=== PATIENT | female | born 1975 | race Caucasian/White ===

== ENCOUNTER 2018-01-06 19:50 | Inpatient (IN) | payer OTHER, SELFPAY ==
[2018-01-06 16:31] VITALS: BMI 30.4
[2018-01-06 18:09] LABS: Hemoglobin 11.3 g/dl (12.0-15.0); Mean Corp Hgb Conc 33.2 g/gl (32-36); Mean Corpuscular Hgb 30.5 pg (27.0-32.0); Mean Corpuscular Volume 91.9 fL (81-99); Mean Platelet Vol. 10.9 fl (6.2-12.0); Platelet Count 240 K/mm3 (150-450); RBC Distribution Width SD 46.5 fl (35.1-43.9); White Blood Count 12.3 K/mm3 (4.4-11.0)
[2018-01-06 18:11] LABS: Scan Indicated on CBC? Y/N NO
[2018-01-06 18:21] LABS: Prothrombin Time (Protime)PT. 13.2 SECONDS (11.7-14.9)
[2018-01-06 18:22] LABS: Partial Thromboplast Time 26.7 Seconds (24.1-36.2)
[2018-01-06 18:27] LABS: AST(SGOT) 22 U/L (15-37); Alanine Aminotransfer ALT/SGPT 22 U/L (13-56); EST Glomerular Filtration Rate 116 mL/min (>60); Est Glom Filt Rate - Afr Amer 141 mL/min (>60); Estimated Creatinine Clearance 102.07 ml/min; Uric Acid 4.4 mg/dL (2.6-6.0)
[2018-01-06 18:30] LABS: Fibrinogen 525 mg/dl (203-444)
[2018-01-06 19:28] LABS: Protein, Urine (Random) 9.2 mg/dL (<11.9); Protein:Creat Ratio 243 mg/g CRE (0-200)
[2018-01-06] MEDS: 0.9% Normal Saline 100 ML IV.SOLN. INTRA-UTER (20:00)
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
[2018-01-06] MEDS: Lactated Ringers 1,000 ML 50 ML IV ×2 (20:30→22:30)
[2018-01-06] MEDS: Acetaminophen 325 MG Tablet PO (22:29)
[2018-01-06] MEDS: Oxytocin 30 units/NS 500 ml 30 UNITS/500 ML IV.SOLN IV (22:59)
[2018-01-07] MEDS: fentaNYL-bupivacaine (epidural) 100 ML BAG EPIDURAL (00:33)
[2018-01-07] MEDS: Amnioinfusion- 0.9% NS 1,000 ML IV.SOLN. 1000 ML INTRA-UTER (04:25)
--- NOTE | 2018-01-07 04:35 | PCM.PN.OB ---
Patient Problems: Active and Suspected Problems Gestational hypertension (Acute) (Acute) Advanced maternal age during (Acute) History of depression (Acute) Rh negative status during (Acute) Rubella non-immune status, antepartum (Acute) Depression affecting (Acute) Subjective: Comfortable with epidural. Multiple position changes due to heart rate: side to side, hands and knees, high fowlers, peanut ball with positions. Partner and family at bedside. Objective: FHT: 115, moderate variability, accels, periodic variable decels with each contraction down to 65. Category 2 FHT TOCO: every 3 minutes, moderate to palpation Oxytocin turned off at 0230 Cervix 7cm/70%/-1 Vertex with transverse position, posterior fontanel to maternal right. AROM at 0308 for moderate amount of clear fluid. IUPC inserted - Physical Exam Weight: 172 lb Body Mass Index (BMI) 30.4 Laboratory Tests Past 24 Hrs 01/06/18 01/06/18 01/06/18 17:30 17:30 17:30 WBC 12.3 H RBC 3.70 L Hgb 11.3 L Hct 34.0 L MCV 91.9 MCH 30.5 MCHC 33.2 RDW 14.0 RDW Differential 46.5 H Plt Count 240 MPV 10.9 PT 13.2 INR 1.0 APTT 26.7 Fibrinogen Creatinine 0.60 Estim Creat Clear Calc 102.07 Est GFR (MDRD) Af Amer 141 Est GFR (MDRD) Non-Af 116 Uric Acid 4.4 AST 22 ALT 22 U Random Total Protein Urine Creatinine Protein/Creatinin Ratio Blood Type Antibody Screen 01/06/18 01/06/18 01/06/18 17:30 17:30 17:30 WBC RBC Hgb Hct MCV MCH MCHC RDW RDW Differential Plt Count MPV PT INR APTT Fibrinogen 525 H Creatinine Estim Creat Clear Calc Est GFR (MDRD) Af Amer Est GFR (MDRD) Non-Af Uric Acid AST ALT U Random Total Protein Urine Creatinine Protein/Creatinin Ratio Blood Type AB NEGATIVE Antibody Screen TNP NEGATIVE 01/06/18 18:55 WBC RBC Hgb Hct MCV MCH MCHC RDW RDW Differential Plt Count MPV PT INR APTT Fibrinogen Creatinine Estim Creat Clear Calc Est GFR (MDRD) Af Amer Est GFR (MDRD) Non-Af Uric Acid AST ALT U Random Total Protein 9.2 Urine Creatinine 37.90 Protein/Creatinin Ratio 243 H Blood Type Antibody Screen Medical Necessity - Tobacco Use Smoking Status: Never smoker Assessment/Plan Active and Suspected Problems Gestational hypertension (Acute) (Acute) Advanced maternal age during (Acute) History of depression (Acute) Rh negative status during (Acute) Rubella non-immune status, antepartum (Acute) Depression affecting (Acute) A: Gestational Hypertension Periodic variable decelerations Category 2 FHT P: 1) Consulted following AROM, pitocin infusion turned off, multiple position changes. Discussed amnioinfusion for periodic variable decelerations with each contraction down to 65bpm at lowest teresa. To start amnioinfusion. Will bolus 300ml NS over 30 minutes via amnioinfusion. 2) Positioned on maternal right side with peanut ball. 3) Pitocin off at this time due to variable decelerations. With resolution will restart pitocin.
[2018-01-07] MEDS: Oxytocin 30 units/NS 500 ml 30 UNITS/500 ML IV.SOLN 334 UNITS IV (06:40)
[2018-01-07] MEDS: Oxytocin 30 units/NS 500 ml 30 UNITS/500 ML IV.SOLN 167 UNITS IV (07:10)
--- NOTE | 2018-01-07 07:26 | PCM.OB.VAG ---
- Problem List (1) Gestational hypertension Status: Acute (2) Status: Acute (3) Advanced maternal age during Status: Acute (4) Rh negative status during Status: Acute (5) Rubella non-immune status, antepartum Status: Acute (6) Depression affecting Status: Acute (7) Vaginal delivery Status: Acute Vaginal Delivery Maternal Presentation: Medically Indicated Induction - Gestational HTN Method of Induction: Pitocin, Witt Bulb Amniotic Membrane Rupture Type: Artificial Amniotic Fluid Description: Clear Final STACEY: 01/18/18 Gestational age: 38 Weeks and 3 Days Date of Procedure: 01/07/18 Pre-Operative Diagnosis: Gestational HTN with Induction of Labor Post-Operative Diagnosis: Sponatneous Vaginal Delivery Surgery/ Procedure Performed: Spontaneous Vaginal Delivery Type of Anesthesia: Epidural Description of Procedure: Progressed to complete with urge to push. of viable male over 1st degree perineal laceration under epidural analgesia. Delivery complicated by CAN x1 and compound left hand. APGARS 8,9. delivered without difficulty, placed on maternal abdomen, spontaneous cry. Mouth and nares suctioned for secretions. Delayed cord clamping. Cord doubly clamped and cut by FOB after pulsations ceased. Pitocin started for active 3rd stage management. Placenta delivered via paola, intact, 3 vessel cord. Perineum inspected for lacerations and revealed 1st degree perineal laceration repaired with 3.0 vicryl and bilateral periurethral lacerations with 3.0 vicryl under epidural analgesia. Family bonding well. Planning to breastfeed. Mom and baby stable. notified of delivery. Presentation: Vertex Placental Delivery Description: Spontaneous Placenta Disposition: [facility] Cord Vessel Description: 3 Vessels Cord Entanglement: Around neck x 1, loose A gender: Male (1 minute): 8 (5 minute): 9 Episiotomy Description: None Laceration: Perineal Extension/lac, 1st degree Medications given after delivery: IV Pitocin
--- NOTE | 2018-01-07 07:39 | DCINST_ITS ---
Discharge Diet: No Restrictions Discharge Activity: Return to Normal Activity, May not drive while taking narcotic pain medications., May Shower May resume sexual activity in: 4-6 weeks Weight Bearing Status: Weight bearing as tolerated Lifting Restrictions: Less than 25lbs Call your doctor if your incision/area has: Continuous Slow Oozing, Sudden Increased Bleeding, Increased Pain/ Swelling, Increased Redness, Foul Smelling Discharge Call your doctor if you observe: Fever of 101 or Higher, Coldness, Increased Pain, Numbness or Tingling, Change in Color, Inability to urinate, Inability to have a bowel movement, Using more than one pad per hour, Shortness of breath, Dizziness, Fainting spells, Swelling in the ankles, Chest pain, Prolonged hiccoughing, Increased palpitations (irregular heartbeat), Calf discomfort, Uncontrolled pain Additional Instructions: If you experience any of the following, contact your healthcare provider. * Bleeding that soaks a pad every hour for 2 hours * Fever 100.4 or higher * Unrelieved incision or abdominal pain * Swelling, redness, discharge or bleeding from your incision or episiotomy site * Your incision begins to separate * Problems urinating (including inability to urinate or burning while urinating) . * Visual changes * Severe headache * Flu-like symptoms * Pain or redness in one of both of your breasts * Pain, warmth, tenderness or swelling in your legs, especially the calf area * Frequent nausea and vomiting * Symptoms of depression or anxiety If you experience any of the following, call 911 or go to the nearest Emergency Room. * Chest pain * Problems breathing * Seizure activity * Partial or complete paralysis of a body part, slurred speech, weakness or drooping of the face, or a sudden inability to walk or hold your balance Allergies/Adverse Reactions: Allergies No Known Allergies Allergy (Verified 10/02/16 21:03) Medications to take at Discharge Aspirin, Baby 81 mg PO DAILY 01/06/18 Pepcid 40 mg PO BID 01/06/18 Pnv No.122/Iron/Folic Acid [ Multi Tablet] 1 tab PO DAILY 01/06/18 Sertraline HCl [Zoloft] 50 mg PO DAILY 01/06/18 Please Follow Up With: Analia Jara MD When: Call to make an appointment with your doctor in 6 weeks. If you had elevated Blood Pressure or 4th degree laceration you will need to be seen in 2 weeks. Primary Care Physician: Neal Pozo DO [Primary Care Provider] -
[2018-01-07 10:00] VITALS: BP 123/74; PULSE 79; RESP 16; TEMP 36.9; O2SAT 96
[2018-01-07] MEDS: Naproxen 250 MG Tablet PO ×2 (10:24→19:59)
[2018-01-07 12:00] VITALS: BP 122/73; PULSE 84; RESP 18; TEMP 36.8; O2SAT 97
--- NOTE | 2018-01-07 13:17 | NURSING ---
0900 While rounding, Mom just finished with her feeding at breast. Mom encouraged to call if I can help with feedings or check a latch. Mom states that feedings have been going well. Will continue to encourage with feedings as able. Brynn HOPKINS
[2018-01-07 17:44] VITALS: BP 135/77; PULSE 78; RESP 18; TEMP 36.4; O2SAT 98
[2018-01-07 19:48] VITALS: BP 137/84; PULSE 88; RESP 18; TEMP 36.7
[2018-01-07] MEDS: Sertraline 50 MG Tablet PO (22:34)
[2018-01-07] MEDS: Acetaminophen 500 MG Tablet 1000 MG PO (22:40)
[2018-01-08 00:10] VITALS: BP 113/71; PULSE 75; RESP 18; TEMP 36.4
[2018-01-08] MEDS: Naproxen 250 MG Tablet PO ×3 (04:04→20:26)
[2018-01-08 04:05] VITALS: BP 129/79; PULSE 72; RESP 18; TEMP 35.8
[2018-01-08 08:00] VITALS: BP 140/78; PULSE 83; RESP 16; TEMP 36.6
--- NOTE | 2018-01-08 13:06 | PCM.PN.BLA ---
Progress Note S: Patient is sitting up in bed, eating lunch. Patient denies any issues or complaints today. Patient reports no issues with urination or ambulation. Denies LAM, dizziness or scotoma. Patient denies issues with urination or ambulation. O: VSS, Afebrile Nipples without cracks or blisters, breasts soft and filling Abdomen NT x 4 quadrants, FF midline 2FB below umbilicus +2/4 reflexes in LE, no edema, no calf tenderness in LE scant rubra lochia, perineum well-approximated A: 43 y/o s/p , Normal PP course, PPD #1 P: 1) Continue PP orders 2) Anticipate discharge to home tomorrow. Iliana Daniels CNM
[2018-01-08 14:00] VITALS: BP 143/73; PULSE 79; RESP 16; TEMP 36.7
[2018-01-08 20:30] VITALS: BP 121/65; PULSE 86; RESP 16; TEMP 36.8
[2018-01-08] MEDS: Sertraline 50 MG Tablet PO (22:20)
[2018-01-09 02:10] VITALS: BP 119/71; PULSE 86; RESP 18; TEMP 36.4; O2SAT 98
--- NOTE | 2018-01-09 05:27 | PCM.PN.BLA ---
Progress Note S: Patient sitting up in bed, at this time. Patient reports no issues. Patient denies LAM, dizziness or scotoma. Patient denies issues with ambulation or urination. + flatus noted. Desires discharge to home today. O: VSS, Afebrile Breasts soft, filling. Nipples without cracks, blisters. No ecchymoses or erythema on breasts noted. Abdomen NT x 4 quadrants, FF midline @ 2FB below umbilicus +2/4 reflexes in LE, no edema, negative calf pain to tenderness perineum well-approximated, no labial edema noted, scant rubra lochia A: 43 y/o s/p , PPD #2, Normal Course P: 1) Discharge to home pending discharge 2) Anticipatory PP health teaching reviewed 3) RTC at 6 weeks PP for f/u visit with [facility] Iliana Fournier CNM
--- NOTE | 2018-01-09 05:36 | PN_ITS ---
Progress Note S: Patient sitting up in bed, at this time. Patient reports no issues. Patient denies LAM, dizziness or scotoma. Patient denies issues with ambulation or urination. + flatus noted. Desires discharge to home today. O: VSS, Afebrile Breasts soft, filling. Nipples without cracks, blisters. No ecchymoses or erythema on breasts noted. Abdomen NT x 4 quadrants, FF midline @ 2FB below umbilicus +2/4 reflexes in LE, no edema, negative calf pain to tenderness perineum well-approximated, no labial edema noted, scant rubra lochia A: 43 y/o s/p , PPD #2, Normal Course P: 1) Discharge to home pending discharge 2) Anticipatory PP health teaching reviewed 3) RTC at 6 weeks PP for f/u visit with [facility] Iliana Fournier CNM
[2018-01-09 08:00] VITALS: BP 115/68; PULSE 78; RESP 16; TEMP 36.4
[2018-01-09] MEDS: Naproxen 250 MG Tablet PO (11:08)
[2018-01-09 14:00] VITALS: BP 140/80; PULSE 90; RESP 18; TEMP 36.8
[2018-01-09 14:05] VITALS: BP 140/80; PULSE 90; RESP 18; TEMP 36.8
== END 2018-01-09 14:05 | disposition home or self-care (01) | DRG 775 ==
LOC: WP 20:01 → WPOUT 01-07 10:05
PROVIDERS: Advanced Practice Midwife; Admitting Provider Obstetrics & Gynecology; Family Provider Student in an Organized Health Care Education/Training Program; PCP Student in an Organized Health Care Education/Training Program; Visit Provider Obstetrics & Gynecology
DX: O13.3 Gestational [pregnancy-induced] hypertension without significant proteinuria, third trimester (principal); O99.343 Other mental disorders complicating pregnancy, third trimester; F32.9 Major depressive disorder, single episode, unspecified; O09.523 Supervision of elderly multigravida, third trimester; O69.81X0 Labor and delivery complicated by cord around neck, without compression, not applicable or unspecified; O70.0 First degree perineal laceration during delivery; O76 Abnormality in fetal heart rate and rhythm complicating labor and delivery; O26.893 Other specified pregnancy related conditions, third trimester; Z67.31 Type AB blood, Rh negative; Z37.0 Single live birth; Z3A.38 38 weeks gestation of pregnancy
CPT/HCPCS: 59025; 59050; 82565; 82570; 84156; 84450; 84460; 84550; 85027; 85384; 85610; 85730; 86850; 86900; 99218; J7030; J7120; G0378

== ENCOUNTER 2021-03-03 11:57 | Outpatient (RCR) | payer OTHER, SELFPAY | END 2021-04-07 23:59 | LOC: IMMUN 11:57 | PROVIDERS: PCP Student in an Organized Health Care Education/Training Program; Referring Provider Family Medicine; Visit Provider Family Medicine | DX: Z23 Encounter for immunization (principal) | CPT/HCPCS: 0001A; 91300 ==